=== PATIENT | male | born 1995 | race Caucasian/White ===

== ENCOUNTER 2017-09-05 16:22 | Emergency (ER) | payer SELFPAY ==
--- NOTE | 2017-09-05 16:46 | ER Document Report ---
ED Medical Screen (RME) - General Chief Complaint: Rectal Bleeding Stated Complaint: RECTAL BLEEDING Time Seen by Provider: 09/05/17 16:44 Mode of Arrival: Ambulatory Information source: Patient TRAVEL OUTSIDE OF THE [place] IN LAST 30 DAYS: No - HPI Patient complains to provider of: rectal bleeding Onset: This morning - pt has had difficulty having a BM intermittently for the past month and had an episode of rectal bleeding this am - Related Data Allergies/Adverse Reactions: No Known Allergies Allergy (Verified 09/05/17 16:23) Physical Exam - Vital signs Vitals: Temp Pulse Resp Pulse Ox 98.7 F 66 14 100 09/05/17 16:37 09/05/17 16:37 09/05/17 16:37 09/05/17 16:37 Course - Vital Signs Vital signs: Temp Pulse Resp BP Pulse Ox 98.7 F 66 14 100 09/05/17 16:37 09/05/17 16:37 09/05/17 16:37 09/05/17 16:37
[2017-09-05 17:45] LABS: ABSOLUTE LYMPHOCYTES (AUTO) 1.9 10^3/uL (0.5-4.7); ABSOLUTE MONOCYTES (AUTO) 0.4 10^3/uL (0.1-1.4); ABSOLUTE NEUT (AUTO) 3.7 10^3/uL (1.7-8.2); BASOPHILS % (AUTO) 0.7 % (0-2); EOSINOPHILS % (AUTO) 0.5 % (0-6); HEMOGLOBIN 13.6 g/dL (13.5-17.0); LYMPHOCYTES % (AUTO) 30.8 % (13-45); MEAN CORPUSCULAR HEMOGLOBIN 30.5 pg (27.0-33.4); MEAN CORPUSCULAR VOLUME 87 fl (80-97); MONOCYTES % (AUTO) 6.7 % (3-13); PLATELET COUNT 211 10^3/uL (150-450); RED BLOOD COUNT 4.47 10^6/uL (4.35-5.55); RED CELL DISTRIBUTION WIDTH 13.5 % (11.5-14.0); SEGMENTED NEUTROPHILS % (AUTO) 61.3 % (42-78); TOTAL CELLS COUNTED % (AUTO) 100 %; WHITE BLOOD COUNT 6.1 10^3/uL (4.0-10.5)
[2017-09-05 17:47] LABS: APPEARANCE,URINE CLEAR; BILIRUBIN,URINE NEGATIVE (NEGATIVE); COLOR,URINE COLORLESS; GLUCOSE, URINE NEGATIVE (NEGATIVE); KETONES,URINE NEGATIVE (NEGATIVE); LEUKOCYTE ESTERASE,URINE NEGATIVE (NEGATIVE); NITRITE,URINE NEGATIVE (NEGATIVE); PROTEIN,URINE NEGATIVE (NEGATIVE); URINE SPECIFIC GRAVITY 1.003; UROBILINOGEN,URINE NEGATIVE mg/dL (<2.0)
[2017-09-05 18:05] LABS: ALANINE AMINOTRANSFERASE 23 U/L (21-72); ALBUMIN 4.8 g/dL (3.5-5.0); ALKALINE PHOSPHATASE 37 U/L (38-126); ANION GAP 12 (5-19); ASPARTATE AMINO TRANSFERASE 20 U/L (17-59); BILIRUBIN,DIRECT 0.3 mg/dL (0.0-0.4); BILIRUBIN,TOTAL 2.5 mg/dL (0.2-1.3); BLOOD UREA NITROGEN 6 mg/dL (7-20); CALCIUM 9.5 mg/dL (8.4-10.2); CARBON DIOXIDE 26 mmol/L (22-30); CHLORIDE 106 mmol/L (98-107); GLUCOSE 76 mg/dL (75-110); POTASSIUM 3.5 mmol/L (3.6-5.0); SODIUM 143.8 mmol/L (137-145); TOTAL PROTEIN 7.1 g/dL (6.3-8.2); URINE AMPHETAMINES SCREEN NEGATIVE; URINE BARBITURATES SCREEN NEGATIVE; URINE BENZODIAZEPINES SCREEN NEGATIVE; URINE COCAINE SCREEN NEGATIVE; URINE MARIJUANA (THC) SCREEN UNCONFIRMED POSITIVE; URINE METHADONE SCREEN NEGATIVE; URINE PHENCYCLIDINE SCREEN NEGATIVE
[2017-09-05 21:09] VITALS: BP 111/65
[2017-09-05] MEDS ORDERED: OLANZAPINE 5 MG TAB.RAPDIS PO ONE (22:02)
[2017-09-05] MEDS ORDERED: BENZTROPINE MESYLATE 1 MG TABLET PO ONE (22:02)
--- NOTE | 2017-09-05 22:29 | PSYCHOLOGICAL NOTE ---
Psych Note - Psych Note Psych Note: Spoke with Patient via telemedicine. He reported he came in for rectal bleeding and when asked by nursing if he had any thoughts of suicide he advised them he had ongoing thoughts for the past few months. Patient reported a history of inpatient hospitalizations dating back to adolescence for reported suicide attempts of overdose. It should be noted, Patient indicated he took medications and vomited before presenting to the ED for the suicide attempt. When younger, he was reportedly hospitalized in [place] for cutting behaviors. Patient reported he was last in [facility] last year when he reportedly overdosed on Buspar and then a few months prior to that when he reportedly took too much Xanax and Klonopin, etc. He initially reported his physician prescribed too much and "got him addicted" but then a few minutes later stated he bought them off the street. patient continued to provide contradictory information throughout the interview. He indicated he was addicted to pain killers when in high school, which reportedly started when in the 9th grade, then graduating to Xanax. Patient denied alcohol use but reported using marijuana every two weeks. He indicated he is "unfortunately" employed full-time at [employer] as a cook and feels it is not a good fit for him. 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 patient reported a previous diagnosis of Borderline Personality Disorder with DBT Treatment in [facility] was not successful. Patient was alert and oriented to person, place, time, and circumstance. Mood was dysthymic and affect was mood congruent. Patient denied current suicidal / homicidal ideation, intent or plan, but stated he has suicidal ideation intermittently for the last 3 months without attempt. He denied psychosis and no delusions were noted. Thought processes were linear, logical, and organized. Conversational speech was within normal limits for rate, tone, and prosody. Intellectual abilities were estimated within the average.Eye contact was well maintained. Attention and concentration was good. Insight judgment, and impulse control was fair. Medication recommendation from [facility] Psychiatrist: 1. Zyprexa Zydis 5 mg Now 2. Cogentin 1 mg PO now 3. Zyprexa 5 mg PO twice per day 4. Cogentin 1 mg daily 5. Prozac 20 mg daily Diagnoses: 1. 301.83 (F60.3) Borderline Personality Disorder Impression / Plan: Patient is psychiatrically clear for discharge. Patient reported chronic suicidal ideation, currently without intent or plan. Patient has long psychiatric history for borderline personality disorder and inpatient psychiatric hospitalizations for reported cutting behaviors as a teen, and overdoses as a young adult, though the overdoses were described as "changing my mind" and resulted in Patient reportedly vomiting prior to contacting EMS and voluntarily admitting to the emergency department. Patient's current presentation was consistent with borderline personality characteristics with regard to manipulation and attention seeking behaviors. He was was amenable to medication management given he reportedly does not have a provider in the area and is open to connecting with [facility] for [facility] follow up and outpatient therapy. ED Physician in agreement with recommendation and disposition.
--- NOTE | 2017-09-05 22:31 | ER Document Report ---
ED General - General Chief Complaint: Psych Problem Stated Complaint: RECTAL BLEEDING Time Seen by Provider: 09/05/17 16:44 Mode of Arrival: Ambulatory TRAVEL OUTSIDE OF THE [place] IN LAST 30 DAYS: No - HPI Patient complains to provider of: Rectal bleeding chronic suicidal ideation Notes: Patient coming in mostly for rectal bleeding. Patient states had blood in his bowel movement today. Patient states is very concerned for sinuses happened. Patient denies any excessive aspirin or NSAID use. Patient denies placing inside anything inside the rectum. Patient denies painful bowel movement. Denies eating anything red or last few days. Patient denies a history of abdominal pain or abdominal issues. Denies fevers chills nausea vomiting diarrhea. Denies constipation. Patient also when checking in for triage was asked if he has suicidal ideation patient's did answer yes to this. Patient states is been ongoing since he was 14. Patient denies a plan. Patient states he supposed to be on psychiatric medications however has not been on any medications nor has he followed up with a provider in approximately 1 year. Patient at the questioning is requesting to speak to our psychiatric team. - Related Data Allergies/Adverse Reactions: No Known Allergies Allergy (Verified 09/05/17 16:23) Past Medical History - General Information source: Patient - Social History Smoking Status: Current Every Day Smoker Chew tobacco use (# tins/day): No Frequency of alcohol use: Rare Drug Abuse: Marijuana Family History: Reviewed & Not Pertinent Patient has suicidal ideation: Yes Patient has homicidal ideation: No Renal/ Medical History: Denies: Hx Peritoneal Dialysis Psychiatric Medical History: Reports: Hx Depression - anxiety Past Surgical History: Reports: Hx Tonsillectomy Review of Systems - Review of Systems Constitutional: No symptoms reported EENT: No symptoms reported Cardiovascular: No symptoms reported Respiratory: No symptoms reported Gastrointestinal: Rectal bleeding Genitourinary: No symptoms reported Male Genitourinary: No symptoms reported Musculoskeletal: No symptoms reported Skin: No symptoms reported Hematologic/Lymphatic: No symptoms reported Neurological/Psychological: Suicidal ideation -: Yes All other systems reviewed and negative Physical Exam - Vital signs Vitals: Temp Pulse Resp BP Pulse Ox 98.7 F 66 14 120/73 100 09/05/17 16:37 09/05/17 16:37 09/05/17 16:37 09/05/17 16:37 09/05/17 16:37 Interpretation: Normal - General General appearance: Appears well, Alert - HEENT Head: Normocephalic, Atraumatic Eyes: Normal Pupils: PERRL - Respiratory Respiratory status: No respiratory distress Chest status: Nontender Breath sounds: Normal Chest palpation: Normal - Cardiovascular Rhythm: Regular Heart sounds: Normal auscultation Murmur: No - Abdominal Inspection: Normal Distension: No distension Bowel sounds: Normal Tenderness: Nontender Organomegaly: No organomegaly - Rectal Hemorrhoids: None - Anal tag with small fissure Prostate: Normal - Back Back: Normal, Nontender - Extremities General upper extremity: Normal inspection, Nontender, Normal color, Normal ROM , Normal temperature General lower extremity: Normal inspection, Nontender, Normal color, Normal ROM , Normal temperature, Normal weight bearing. No: Rosie's sign - Neurological Neuro grossly intact: Yes Cognition: Normal Orientation: AAOx4 [place] Coma Scale Eye Opening: Spontaneous Celine Coma Scale Verbal: Oriented Celine Coma Scale Motor: Obeys Commands [place] Coma Scale Total: 15 Speech: Normal Motor strength normal: LUE, RUE, LLE, RLE Sensory: Normal - Psychological Associated symptoms: Normal affect, Normal mood - Skin Skin Temperature: Warm Skin Moisture: Dry Skin Color: Normal Course - Re-evaluation Re-evalutation: 09/06/17 00:29 Patient more likely bleeding from the site of an anal tag. No signs of hemorrhoids. Patient was evaluated by our psychiatric team recommends discharged which I agree with at this time. Patient with chronic suicidal ideation with no plan no access to guns or weapons. Patient agrees to return to the ER if symptoms worsen patient does have friends and family to stay with tonight. Patient will be discharged home psychiatric team did recommend medication Zyprexa and Cogentin. Did give the patient a dose here in ER and will give the patient a 10 day supply. Patient was also given referral to [facility]. Patient was also given GI follow-up. - Vital Signs Vital signs: Temp Pulse Resp BP Pulse Ox 98.7 F 61 16 111/65 100 09/05/17 16:37 09/05/17 21:01 09/05/17 21:01 09/05/17 21:01 09/05/17 21:01 - Laboratory Result Diagrams: 09/05/17 17:32 09/05/17 17:32 Laboratory results interpreted by me: 09/05/17 17:32 Potassium 3.5 L BUN 6 L Total Bilirubin 2.5 H Alkaline Phosphatase 37 L Discharge - Discharge Clinical Impression: Rectal bleeding, Suicidal ideation Disposition: HOME, SELF-CARE Instructions: Anal Fissure ([facility]), Gastroenterology, Rectal Bleeding, Unclear Cause ([facility]), Suicidal Ideation ([facility]) Additional Instructions: Please follow-up with the psychological services as provided. Return to the ER for any worsening symptoms. Your rectal bleeding is caused by the anal tag or small anal fissure. This will heal up on its own. He can follow up with primary care physician or gastroenterology as listed. Prescriptions: Benztropine Mesylate 1 mg PO DAILY #10 tablet Olanzapine [Zyprexa 5 mg Tablet] 5 mg PO Q12 #20 tablet Forms: Return to Work Referrals: [facility] [Provider Group] - Follow up as needed
== END 2017-09-05 22:46 | disposition home or self-care (01) ==
LOC: ER 16:22
DX: R45.851 Suicidal ideations (principal); K62.5 Hemorrhage of anus and rectum; F17.200 Nicotine dependence, unspecified, uncomplicated
CPT/HCPCS: 99285; 36415; 85025; 80053; 81001; 80307; J3490

== ENCOUNTER 2017-12-03 16:02 | Emergency (ER) | payer SELFPAY ==
[2017-12-03 16:10] VITALS: BP 127/79
--- NOTE | 2017-12-03 16:25 | ER Document Report ---
ED Medical Screen (RME) - General Chief Complaint: Suicidal Ideation Stated Complaint: PSYCH EVAL Time Seen by Provider: 12/03/17 16:21 Notes: RAPID MEDICAL EVALUATION DISCLOSURE I have seen this patient as part of a Rapid Medical Evaluation and, if applicable, placed any initially appropriate orders. The patient will be seen and fully evaluated, including a full history and physical exam, by a provider ( in Main ED or Fast Track) when a room becomes available. 22-year-old male here with complaints of suicidal ideations (has a plan to hang himself) that have been ongoing for years now but have been progressively worsening for the past 1 month now. He states he cannot figure out exactly why he is having any suicidal ideations since there is nothing in particular going on in his life to make him feel this way. He has also had thoughts of harming other people but it is no one in particular. He states it is whoever is making him angry at the time. He has not been taking his medications for the past 3 weeks because he has run out and has been unable to see his doctor to get refills. EXAM Appears depressed TRAVEL OUTSIDE OF THE [place] IN LAST 30 DAYS: No - Related Data Allergies/Adverse Reactions: No Known Allergies Allergy (Verified 12/03/17 16:04) Past Medical History - Social History Chew tobacco use (# tins/day): No Frequency of alcohol use: Occasional Drug Abuse: Marijuana Renal/ Medical History: Denies: Hx Peritoneal Dialysis Psychiatric Medical History: Reports: Hx Attention Deficit Hyperactivity Disorder, Hx Depression - anxiety Past Surgical History: Reports: Hx Tonsillectomy Physical Exam - Vital signs Vitals: Temp Pulse Resp BP Pulse Ox 99.3 F 91 18 127/79 H 99 12/03/17 16:09 12/03/17 16:09 12/03/17 16:09 12/03/17 16:09 12/03/17 16:09 Course - Vital Signs Vital signs: Temp Pulse Resp BP Pulse Ox 99.3 F 91 18 127/79 H 99 12/03/17 16:09 12/03/17 16:09 12/03/17 16:09 12/03/17 16:09 12/03/17 16:09
[2017-12-03 16:42] LABS: ABSOLUTE BASOPHILS # (AUTO) 0.1 10^3/uL (0.0-0.2); ABSOLUTE LYMPHOCYTES (AUTO) 1.5 10^3/uL (0.5-4.7); ABSOLUTE MONOCYTES (AUTO) 0.4 10^3/uL (0.1-1.4); ABSOLUTE NEUT (AUTO) 5.1 10^3/uL (1.7-8.2); BASOPHILS % (AUTO) 0.7 % (0-2); EOSINOPHILS % (AUTO) 0.1 % (0-6); HEMATOCRIT 46.8 % (37.9-51.0); HEMOGLOBIN 16.6 g/dL (13.5-17.0); MEAN CORPUSCULAR HEMOGLOBIN 30.8 pg (27.0-33.4); MEAN CORPUSCULAR HGB CONC 35.4 g/dL (32.0-36.0); MEAN CORPUSCULAR VOLUME 87 fl (80-97); MONOCYTES % (AUTO) 6.2 % (3-13); PLATELET COUNT 234 10^3/uL (150-450); RED BLOOD COUNT 5.38 10^6/uL (4.35-5.55); RED CELL DISTRIBUTION WIDTH 13.7 % (11.5-14.0); TOTAL CELLS COUNTED % (AUTO) 100 %; WHITE BLOOD COUNT 7.1 10^3/uL (4.0-10.5)
[2017-12-03 16:47] LABS: APPEARANCE,URINE CLEAR; BILIRUBIN,URINE NEGATIVE (NEGATIVE); COLOR,URINE YELLOW; GLUCOSE, URINE NEGATIVE (NEGATIVE); KETONES,URINE NEGATIVE (NEGATIVE); LEUKOCYTE ESTERASE,URINE NEGATIVE (NEGATIVE); NITRITE,URINE NEGATIVE (NEGATIVE); PROTEIN,URINE NEGATIVE (NEGATIVE); URINE SPECIFIC GRAVITY 1.019; UROBILINOGEN,URINE NEGATIVE mg/dL (<2.0)
[2017-12-03 17:03] LABS: ACETAMINOPHEN < 10 ug/mL (10-30); ALANINE AMINOTRANSFERASE 24 U/L (21-72); ALBUMIN 5.3 g/dL (3.5-5.0); ALCOHOL < 10 mg/dL (NONE DETECTED); ALKALINE PHOSPHATASE 52 U/L (38-126); ANION GAP 13 (5-19); ASPARTATE AMINO TRANSFERASE 28 U/L (17-59); BILIRUBIN,TOTAL 2.4 mg/dL (0.2-1.3); BLOOD UREA NITROGEN 12 mg/dL (7-20); CALCIUM 10.7 mg/dL (8.4-10.2); CARBON DIOXIDE 29 mmol/L (22-30); CHLORIDE 104 mmol/L (98-107); GLUCOSE 91 mg/dL (75-110); POTASSIUM 4.2 mmol/L (3.6-5.0); SALICYLATE < 1.0 mg/dL (2.0-20.0); SODIUM 145.8 mmol/L (137-145); TOTAL PROTEIN 8.2 g/dL (6.3-8.2); URINE AMPHETAMINES SCREEN NEGATIVE; URINE BARBITURATES SCREEN NEGATIVE; URINE BENZODIAZEPINES SCREEN NEGATIVE; URINE COCAINE SCREEN NEGATIVE; URINE MARIJUANA (THC) SCREEN UNCONFIRMED POSITIVE; URINE METHADONE SCREEN NEGATIVE; URINE PHENCYCLIDINE SCREEN NEGATIVE
[2017-12-03] MEDS ORDERED: ACETAMINOPHEN 325 MG TABLET ONE (17:43)
[2017-12-03] MEDS ORDERED: ACETAMINOPHEN 325 MG TABLET PO ONE (17:49)
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
--- NOTE | 2017-12-03 18:20 | ER Document Report ---
ED General - General Chief Complaint: Suicidal Ideation Stated Complaint: PSYCH EVAL Time Seen by Provider: 12/03/17 16:21 Notes: 22-year-old male here with complaints of suicidal ideations (has a plan to hang himself) that have been ongoing for years now but have been progressively worsening for the past 1 month now. He states he cannot figure out exactly why he is having any suicidal ideations since there is nothing in particular going on in his life to make him feel this way. He has also had thoughts of harming other people but it is no one in particular. He states it is whoever is making him angry at the time. He has not been taking his medications for the past 3 weeks because he has run out and has been unable to see his doctor to get refills. TRAVEL OUTSIDE OF THE [place] IN LAST 30 DAYS: No - Related Data Allergies/Adverse Reactions: No Known Allergies Allergy (Verified 12/03/17 16:04) Past Medical History - Social History Smoking Status: Current Every Day Smoker Chew tobacco use (# tins/day): No Frequency of alcohol use: Occasional Drug Abuse: Marijuana Family History: Reviewed & Not Pertinent Patient has suicidal ideation: Yes Patient has homicidal ideation: Yes Renal/ Medical History: Denies: Hx Peritoneal Dialysis Psychiatric Medical History: Reports: Hx Attention Deficit Hyperactivity Disorder, Hx Depression - anxiety Past Surgical History: Reports: Hx Tonsillectomy Review of Systems - Review of Systems Notes: See history of present illness for pertinent positive review of systems; otherwise all review of systems have been reviewed and are negative Physical Exam - Vital signs Vitals: Temp Pulse Resp BP Pulse Ox 99.3 F 91 18 127/79 H 99 12/03/17 16:09 12/03/17 16:09 12/03/17 16:09 12/03/17 16:09 12/03/17 16:09 - Notes Notes: PHYSICAL EXAMINATION: GENERAL: Well-appearing and in no acute distress. HEAD: Atraumatic, normocephalic. EYES: Pupils equal round and reactive to light, extraocular movements intact, sclera anicteric, conjunctiva are normal. ENT: nares patent, oropharynx clear without exudates. Moist mucous membranes. NECK: Normal range of motion, supple without lymphadenopathy LUNGS: CTAB and equal. No wheezes rales or rhonchi. HEART: Regular rate and rhythm without murmurs ABDOMEN: Soft, no tenderness. No facial grimacing/wincing upon palpation. No guarding, no rebound. EXTREMITIES: Normal range of motion, no pitting edema. No cyanosis. NEUROLOGICAL: Cranial nerves grossly intact. Normal sensory/motor exams. PSYCH: Appears somewhat depressed SKIN: Warm, Dry, normal turgor, no rashes or lesions noted Course - Re-evaluation Re-evalutation: 12/03/17 18:20 MEDICAL DECISION MAKING: Patient has been seen by Terence with mental health team and is clear for discharge She has explained to him to follow-up with outpatient providers Patient understands and agrees to the plan of care - Vital Signs Vital signs: Temp Pulse Resp BP Pulse Ox 99.3 F 91 18 127/79 H 99 12/03/17 16:09 12/03/17 16:09 12/03/17 16:09 12/03/17 16:09 12/03/17 16:09 - Laboratory Result Diagrams: 12/03/17 16:30 12/03/17 16:30 Laboratory results interpreted by me: 12/03/17 12/03/17 16:30 16:30 Sodium 145.8 H Calcium 10.7 H Total Bilirubin 2.4 H Direct Bilirubin 2.4 H Albumin 5.3 H Urine Ascorbic Acid 40 H Salicylates < 1.0 L Acetaminophen < 10 L Discharge - Discharge Clinical Impression: Suicidal ideations Condition: Good Disposition: HOME, SELF-CARE Additional Instructions: You were seen in the emergency department at [facility]. Please follow-up with [facility] in the next few days for further management/evaluation. Please return to the emergency department for worsening of symptoms or any symptom that you deem to be concerning or life-threatening. You are recommended to contacted [facility] for continued assistance with outpatient mental health services. thank you for allowing us to be part of your care. Referrals: [facility] [Outside] - Follow up in 3-5 days [facility] [Outside] - Follow up as needed
--- NOTE | 2017-12-03 18:45 | EKG REPORT ---
SEVERITY:- OTHERWISE NORMAL ECG - SINUS RHYTHM BORDERLINE RIGHT AXIS DEVIATION : Confirmed by: Tyler Brennan MD 03-Dec-2017 18:44:23
[2017-12-05 14:53] LABS: BILIRUBIN,DIRECT 0.2 mg/dL (0.0-0.4)
== END 2017-12-03 18:39 | disposition home or self-care (01) ==
LOC: ER 16:02
DX: R45.851 Suicidal ideations (principal); Z91.14 Patient's other noncompliance with medication regimen; F17.200 Nicotine dependence, unspecified, uncomplicated
CPT/HCPCS: 36415; 80053; 80307; 81001; 85025; 93005; 93010; 99285